=== PATIENT | male | born 1950 | race Caucasian/White ===

== ENCOUNTER 2019-12-03 17:24 | Emergency (ER) | payer MEDICARE, SELFPAY ==
[2019-12-03 17:39] VITALS: BP 207/93; PULSE 88; RESP 18; TEMP 37.6; O2SAT 98
--- NOTE | 2019-12-03 18:14 | ED.UPPEXIN ---
HPI - Extremity Injury (Upper) General Chief Complaint: Extremity Injury, Upper Stated Complaint: Extremity Injury, Upper Time Seen by Provider: 12/03/19 18:00 Source: patient and RN notes reviewed Mode of arrival: ambulatory Limitations: no limitations History of Present Illness HPI narrative: 69 year old male who presents to [facility] with laceration to his left distal index finger while using a table saw today around 5pm Patient states that he was cutting a piece of wood and he accidently cut the tip of his left index finger and has been unable to get it to stop bleeding. He states that his tetanus shot is up to date. Patient has 2.5cm semi circular wound to the tip of his left index finger with n damage to his nail. Patient denies any tingling or numbness to his left index finger, nail bed has brisk capillary refill, left radial pulse is of good quality, and finger has full mobility MD complaint: injury to: left Onset (ago): hour(s) (at 5 pm today) Other Extremity Injury: Left: fingers (index) Other injuries: none Handedness: right Place: home Severity: moderate Severity scale (1-10): 5 Context: laceration Associated symptoms: denies other symptoms Treatments prior to arrival: bandage Related Data Home Medications Medication Instructions Recorded Confirmed hydrochlorothiazide 25 mg PO DAILY 12/03/19 12/03/19 methotrexate sodium 20 mg PO WEEKLY 12/03/19 12/03/19 spironolactone 25 mg PO DAILY 12/03/19 12/03/19 Allergies Allergy/AdvReac Type Severity Reaction Status Date / Time No Known Allergies Allergy Verified 12/03/19 18:09 Review of Systems Review of Systems: Narrative: CONSTITUTIONAL: Denies fever, chills, or sweats. EYES: Denies visual changes, redness, or discharge. ENT: Denies rhinorrhea, congestion, sore throat, or otalgia. CARDIOVASCULAR: Denies chest pain, palpitations, or edema. RESPIRATORY: Denies cough or dyspnea. GASTROINTESTINAL: Denies abdominal pain, nausea, vomiting, or diarrhea. GENITOURINARY: Denies dysuria or hematuria. SKIN: Denies rash or itching.positive for laceration to his left distal index finger MUSCULOSKELETAL: Denies back pain, joint pain, or myalgia. NEUROLOGIC: Denies headache, numbness, or weakness. PSYCHIATRIC: Denies anxiety or depression. All systems reviewed & are unremarkable except as noted in HPI and below PMFSH Past Medical History Medical History (Updated 12/05/19 @ 14:57 by Leigha Feng NP) Femur fracture, right ORIF Hypertension Psoriasis Rheumatoid arthritis Right wrist fracture Surgical History Surgical History (Updated 12/05/19 @ 14:46 by Leigha Feng NP) History of arthroplasty of right ankle Hx of right knee surgery Social History Social History (Updated 12/05/19 @ 14:47 by Leigha Feng NP) Smoking status: Former smoker Tobacco type: cigarettes Smoking end date: 02/05/89 Alcohol intake: unknown Substance use: unknown Living arrangements: with family Occupation/Education: retired Gender identity (if verbalized by the patient): Male Comments At time of signature, agree with nursing past medical, surgical, social history. There is no relevant family history pertinent to the presenting complaint Exam Narrative: Exam Narrative: GENERAL: Well-appearing, well-nourished, and in no acute distress. HEAD: Normocephalic, atraumatic. EYES: PERRLA and EOMI. ENT: Nares clear, no rhinorrhea or epistaxis. Mucous membranes moist. NECK: Supple.no lymphadenopathy CHEST: Clear to auscultation. No respiratory distress. HEART: Regular rate and rhythm. No murmur heard. Normal peripheral pulses. ABDOMEN: Soft, nontender, nondistended, normal active bowel sounds. EXTREMITIES: Normal range of motion. No edema. SKIN: Warm, dry, no rash. 2.5cm semi circular wound to distal left index finger active bleeding upon arrival to clinic, pressure dressing applied with bleeding decreased. Wound irrigated with normal saline and inspected for forei
== END 2019-12-03 19:26 | disposition home or self-care (01) ==
PROVIDERS: Emergency Provider Registered Nurse
DX: S61.211A Laceration without foreign body of left index finger without damage to nail, initial encounter (principal); W27.0XXA Contact with workbench tool, initial encounter; Z87.891 Personal history of nicotine dependence; I10 Essential (primary) hypertension; M06.9 Rheumatoid arthritis, unspecified
CPT/HCPCS: 12001; 99203; G0463

== ENCOUNTER 2023-12-27 12:44 | Outpatient (CLI) | payer MEDICARE, SELFPAY ==
[2023-12-27 18:40] LABS: Add Urine Microscopic? NO; Appearance Urine Clear (Clear); Bilirubin Urine Negative (Negative); Blood Urine Negative (Negative); Color Urine Yellow (Yellow); Glucose Urine UA Negative (Negative); Ketones Urine Negative (Negative); Leukocyte Esterase Ur Negative LEU/UL (Negative); Nitrate Urine Negative (Negative); Protein Urine Negative (Negative); Specific Grav Ur 1.019 (1.001-1.035); Urobilinogen Urine 0.2 mg/dL (<2.0)
[2023-12-27 18:40] LABS: Basophils Absolute Auto 0.1 K/mm3 (0.0-0.1); Basophils Percent Auto 0.8 % (0.2-1.2); Eosinophils Absolute Auto 0.1 K/mm3 (0-0.3); Eosinophils Percent Auto 2.1 % (0-4.4); Hematocrit 38.6 % (42.0-52.0); Hemoglobin 12.2 g/dL (14.0-18.0); Immature Granulocyte Absolute 0.01 K/mm3 (0.00-0.031); Immature Granulocyte Percent A 0.2 % (0-0.5); Lymphocytes Absolute Auto 1.48 K/mm3 (0.9-3.2); Lymphocytes Percent Auto 23.8 % (18.3-44.2); Mean Corpuscular HGB Conc 31.6 g/dl (32-36); Mean Corpuscular Hemoglobin 29.5 pg (26-34); Mean Corpuscular Volume 93.5 fl (80-100); Mean Platelet Volume 11.1 fl (7.4-10.4); Monocytes Absolute Auto 0.3 K/mm3 (0.1-0.6); Neutrophils Absolute Auto 4.3 K/mm3 (1.3-6.7); Neutrophils Percent Auto 69.1 % (45.5-73.1); Platelet Count Result 195 k/mm3 (150-375); Red Blood Count 4.13 M/mm3 (4.6-6.20); Red Cell Distribution Width 14.4 % (11.5-14.5); White Blood Count 6.2 K/mm3 (4.5-10.0)
[2023-12-27 19:03] LABS: Rheumatoid Factor < 12.0 IU/ML (<12)
[2023-12-27 19:05] LABS: Alanine Aminotransferase 30 U/L (6-50); Albumin Level 4.7 g/dL (3.5-5.1); Alkaline Phosphatase 98 U/L (38-126); Anion Gap 8 mmol/L (4-12); Aspartate Amino Transferase 69 U/L (17-59); Bilirubin,Total 0.8 mg/dL (0.2-1.3); Blood Urea Nitrogen 31 mg/dL (9-20); CRP 0.6 mg/dL (<1.0); Calcium 9.4 mg/dL (8.4-10.2); Carbon Dioxide 28 mmol/L (22-30); Chloride 111 mmol/L (98-107); Estimated Glomerular Filt Rate 40; Glucose 118 mg/dL (65-110); Phosphorus 3.2 mg/dL (2.5-4.5); Potassium 4.5 mmol/L (3.4-5.0); Sodium 147 mmol/L (137-145); Uric Acid 7.8 mg/dL (3.5-8.5)
[2023-12-27 19:21] LABS: Erythrocyte Sedimentation Rate 44 mm/hr (0-20)
[2023-12-29 04:38] LABS: ANA Cascade Screen NEGATIVE (NEGATIVE)
[2024-01-01 11:54] LABS: NIL 0.02 IU/mL; Quantiferon TB Plus, 1T NEGATIVE (NEGATIVE); TB1-NIL 0.03 IU/mL; TB2-NIL 0.02 IU/mL
== END 2023-12-27 12:45 | disposition home or self-care (01) ==
PROVIDERS: Visit Provider Internal Medicine
DX: M06.9 Rheumatoid arthritis, unspecified (principal); Z79.899 Other long term (current) drug therapy
CPT/HCPCS: 36415; 80053; 80069; 81003; 84443; 84550; 85025; 85652; 86038; 86140; 86200; 86225; 86235; 86364; 86430; 86480